=== PATIENT | female | born 1990 | race Caucasian/White ===

== ENCOUNTER → 2018-02-19 | Emergency (ER) | payer OTHER ==
[~2018-02-19] VITALS: Ht 162.6 cm; Wt 91.6 kg
[2018-02-19 12:20] VITALS: Ht 162.6 cm; Wt 91.6 kg
[2018-02-19 13:28] VITALS: BP 145/86
== END ==
LOC: ED 12:10
DX: R07.9 Chest pain, unspecified (principal)
CPT/HCPCS: Q0092